=== PATIENT | male | born 1965 | race Caucasian/White ===

== ENCOUNTER 2022-05-27 08:51 | Inpatient (IN) | payer OTHER ==
[~2022-05-27] VITALS: Ht 182.9 cm; Wt 80.0 kg
[~2022-05-27 08:51] MED LIST: ETHYL ALCOHOL 62% ANTISEPTIC NASAL SANITIZER 0.6 ML AMPUL NASAL ONE; RINGERS SOLUTION,LACTATED 1,000 ML IV ONE
[2022-05-27] MEDS ORDERED: VANCOMYCIN HCL 1 GM/VIAL ONE ×3 (09:55→13:47)
[2022-05-27] MEDS ORDERED: BUPIVACAINE HCL/PF 0.5% 30 ML VIAL ONE (09:56)
[2022-05-27] MEDS ORDERED: SODIUM CL IRRIG SOLN BAG 3,000 ML IRRIG ONE (09:56)
[2022-05-27] MEDS ORDERED: LACT10SO9 PO (09:58)
[2022-05-27] MEDS ORDERED: LEVO125 PO (09:58)
[2022-05-27] MEDS ORDERED: CAPS60CR3 TP (09:58)
[2022-05-27] MEDS ORDERED: DULO-114 PO (09:58)
[2022-05-27] MEDS ORDERED: XALA2.5OS OU (09:58)
[2022-05-27] MEDS ORDERED: HYDR25TA PO (09:58)
[2022-05-27] MEDS ORDERED: CYCL-448 PO (09:58)
[2022-05-27] MEDS ORDERED: ACET-2247 PO (09:58)
[2022-05-27] MEDS ORDERED: MORP20CA16 PO (09:58)
[2022-05-27] MEDS ORDERED: LINA145C PO (09:58)
[2022-05-27] MEDS ORDERED: PREG75 PO (09:58)
[2022-05-27] MEDS ORDERED: COLL1PAC16 TP (09:58)
[2022-05-27] MEDS ORDERED: MAGN-169 PO (09:58)
[2022-05-27] MEDS ORDERED: LEVE500T20 PO (09:58)
[2022-05-27] MEDS ORDERED: LISI-894 PO (09:58)
[2022-05-27] MEDS ORDERED: HYDR30CR39 TP (09:58)
[2022-05-27] MEDS ORDERED: CHOL25TA4 PO (09:58)
[2022-05-27] MEDS ORDERED: NAPR-1025 PO (09:58)
[2022-05-27] MEDS ORDERED: FERR325T27 PO (09:58)
[2022-05-27 10:03] LABS: COVID AG,FIA SOURCE NASAL SWAB
[2022-05-27 10:05] LABS: ANION GAP 9 mmol/L (8-16); CALCIUM, TOTAL 9.6 mg/dL (8.8-10.5); CARBON DIOXIDE 27 mmol/L (22-29); CHLORIDE 105 mmol/L (98-107); CREATININE 1.17 mg/dL (0.60-1.30); GLOMERULAR FILTR. RATE CALC > 60 mL/min (>60); GLUCOSE,RANDOM 107 mg/dL (70-110); POTASSIUM 4.6 mmol/L (3.5-5.1); SODIUM SERUM 141 mmol/L (136-145); UREA NITROGEN, BLOOD 23 mg/dL (7-18)
[2022-05-27 10:08] LABS: PROTHROMBIN TIME 10.9 SEC (9.4-11.6)
[2022-05-27] MEDS ORDERED: CeFAZolin 2 GM/DEXTROSE 50 ML IV ONE ×2 (10:37→12:00)
[2022-05-27] MEDS ORDERED: RINGERS SOLUTION,LACTATED 1,000 ML IV ONE ×2 (11:00→19:06)
[2022-05-27] MEDS ORDERED: SODIUM CHLORIDE 0.9% 1,000 ML ONE ×4 (11:33→19:12)
[2022-05-27] MEDS ORDERED: BUPIVACAINE LIPOSOME/PF 1.3%-13.3MG/ML SUSPENSION 20 ML VIAL INJ ONE (12:00)
[2022-05-27] MEDS ORDERED: KETAMINE HCL 50 MG/ML 10 ML VIAL IVP ONE (12:00)
[2022-05-27] MEDS ORDERED: ROCURONIUM BROMIDE 10 MG/ML 5 ML VIAL IVP ONE (12:00)
[2022-05-27] MEDS ORDERED: 0.9% SODIUM CHLORIDE 10 ML VIAL IVP ONE (12:00)
[2022-05-27] MEDS ORDERED: KETOROLAC TROMETHAMINE 60 MG/2 ML VIAL IM ONE (12:00)
[2022-05-27] MEDS ORDERED: DEXAMETHASONE SOD PHOS 4 MG/ML VIAL IVP ONE (12:00)
[2022-05-27] MEDS ORDERED: HYDROmorphone HCL 2 MG/ML SYRINGE IVP ONE (12:00)
[2022-05-27] MEDS ORDERED: ONDANSETRON HCL 4 MG/2 ML VIAL IVP ONE (12:00)
[2022-05-27] MEDS ORDERED: MIDAZOLAM HCL 2 MG/2 ML VIAL IVP ONE (12:00)
[2022-05-27] MEDS ORDERED: LIDOCAINE/PF 2% 5 ML VIAL IM ONE (12:00)
[2022-05-27] MEDS ORDERED: FentaNYL CITRATE PF 100 MCG/2 ML VIAL IVP ONE (12:00)
[2022-05-27] MEDS ORDERED: SODIUM CHLORIDE 0.9% 50 ML ONE (12:05)
[2022-05-27] MEDS ORDERED: TRANEXAMIC ACID IV ONE (12:15)
[2022-05-27] MEDS ORDERED: WATER IV ONE (12:15)
[2022-05-27] MEDS ORDERED: DEXTROSE 5% IV ONE (12:15)
[2022-05-27] MEDS ORDERED: TRANEXAMIC ACID 1,000 MG in DEXTROSE 5%-WATER 50 ML IV ONE ×4 (12:30)
[2022-05-27] MEDS ORDERED: PHENYLEPHRINE 200 MG/D5%-WATER 250 ML IV SCH (13:09)
[2022-05-27 13:35] LABS: ABG BASE EXCESS -0.1 mmol/L (-2.0-3.0); ABG CARBOXYHEMOGLOBIN 0.8 % (0.0-1.5); ABG HCO3 25.2 mmol/L (22.0-26.0); ABG METHEMOGLOBIN 0.1 % (0.0-1.5); ABG OXYGEN CONTENT 17.5 mL/dL (15.0-23.0); ABG OXYHEMOGLOBIN 97.1 % (94.0-100.0); ABG PCO2 29 mmHg (35-45); ABG PH 7.517 (7.35-7.450); ABG TOTAL HEMOGLOBIN 12.7 G/dL (12.0-18.0); PO2, ARTERIAL BG 99.2 mmHg (84.0-92.0); SOURCE, BLOOD GAS ARTERIAL; TEMPERATURE, FAHRENHEIT, BG 97.5 FAHREN (96.0-98.6)
[2022-05-27 13:37] LABS: ABG A-A DIFF O2 16.3 mmHg (10-20.0); O2 DEVICE,BLOOD GAS ROOM AIR (ROOM AIR); SITE, BLOOD GAS RT RADIAL
[2022-05-27] MEDS ORDERED: THROMBIN, BOVINE 20000 UNITS/VIAL POWDER TP ONE (16:15)
[2022-05-27] MEDS ORDERED: MEPERIDINE-PF 25 MG/ML VIAL IVP PRN (16:30)
[2022-05-27] MEDS ORDERED: FentaNYL CITRATE PF 100 MCG/2 ML VIAL IVP PRN (16:30)
[2022-05-27] MEDS ORDERED: HYDROmorphone HCL 2 MG/ML SYRINGE IVP PRN (16:30)
[2022-05-27] MEDS ORDERED: HEPARIN SODIUM,PORCINE 5,000 UNITS/ML VIAL ONE ×4 (17:18→19:06)
[2022-05-27] MEDS ORDERED: OxyCODONE HCL 5 MG IR TABLET PO PRN (17:45)
[2022-05-27] MEDS ORDERED: OxyCODONE HCL/ACETAMINOPHEN 10-325 MG TABLET PO PRN (17:45)
[2022-05-27] MEDS ORDERED: CYCLOBENZAPRINE HCL 10 MG TABLET PO PRN (17:45)
[2022-05-27] MEDS ORDERED: ZOLPIDEM TARTRATE 5 MG TABLET PO PRN (17:45)
[2022-05-27] MEDS ORDERED: ONDANSETRON HCL 4 MG/2 ML VIAL IVP PRN ×3 (17:45→22:15)
[2022-05-27] MEDS ORDERED: HEPARIN SODIUM,PORCINE 5,000 UNITS/ML VIAL SQ ONE ×2 (18:45→21:30)
[2022-05-27] MEDS ORDERED: MINERAL OIL/PETROLATUM,WHITE PF 3.5 GM OPHTHALMIC OINTMENT ONE (18:51)
[2022-05-27] MEDS ORDERED: SODIUM CHLORIDE 0.9% 2,000 ML ONE (19:06)
[2022-05-27] MEDS ORDERED: PROPOFOL 1000 MG/ISO-OSM 100 ML ONE ×2 (19:27→19:28)
[2022-05-27] MEDS ORDERED: ACETAMINOPHEN 1000 MG/ISO-OSM 100 ML IV ONE (19:28)
[2022-05-27] MEDS ORDERED: DiphenhydrAMINE HCL 50 MG/ML VIAL IVP PRN (20:00)
[2022-05-27] MEDS ORDERED: NALOXONE HCL 0.4 MG/ML VIAL IVP PRN (20:00)
[2022-05-27] MEDS ORDERED: ACETAMINOPHEN 325 MG TABLET PO PRN ×2 (20:00→22:30)
[2022-05-27] MEDS ORDERED: BACITRACIN 28 GM OINTMENT TP PRN (20:00)
[2022-05-27] MEDS ORDERED: MAG HYDROX/AL HYDROX/SIMETH 30 ML SUSP UDCUP PO PRN (20:00)
[2022-05-27] MEDS ORDERED: FentaNYL CIT 1000MCG/0.9% NACL 100 ML IV PRN (20:30)
[2022-05-27] MEDS ORDERED: MUPIROCIN CALCIUM 2% 22 GM OINTMENT ONE (20:32)
[2022-05-27] MEDS: OXYGEN THERAPY IH SCH (21:00)
[2022-05-27] MEDS: DOCUSATE SODIUM 100 MG CAPSULE PO SCH (21:00)
[2022-05-27 21:13] VITALS: BP 91/54
[2022-05-27] MEDS: PROPOFOL 1000 MG/ISO-OSM 100 ML IV PRN (21:30)
[2022-05-27] MEDS ORDERED: MIDAZOLAM HCL 100 MG in SODIUM CHLORIDE 0.9% 180 ML IV PRN (21:30)
[2022-05-27] MEDS ORDERED: ACETAMINOPHEN 650 MG/20.3 ML SOLUTION UDCUP GT PRN (22:15)
[2022-05-27 22:24] LABS: BASOPHILS % (AUTO) 0.3 % (0.0-2.0); EOSINOPHILS % (AUTO) 0 % (1.0-6.0); LYMPHOCYTES # (AUTO) 0.7 K/uL (1.0-4.8); MEAN CORPUSCULAR HEMOGLOBIN 26.5 pg (26.0-34.0); MEAN CORPUSCULAR HGB CONC 31.3 G/dL (31.0-37.0); MEAN CORPUSCULAR VOLUME 85 fL (80-100); MONOCYTES # (AUTO) 0.3 K/uL (0.1-1.0); MONOCYTES % (AUTO) 3.4 % (2.0-9.0); NEUTROPHILS # (AUTO) 9.1 K/uL (1.8-7.7); PLATELET COUNT (AUTO) 286 K/uL (150-450); RED BLOOD CELL COUNT(AUTO) 3.78 MIL/uL (4.50-5.90); RED CELL DISTRIBUTION WIDTH 22.5 % (11.5-14.5)
[2022-05-27] MEDS ORDERED: ZOLPIDEM TARTRATE 10 MG TABLET PO PRN (22:24)
[2022-05-27 22:28] LABS: NEUTROPHILS % (AUTO) 89.3 % (40.0-70.0)
[2022-05-27] MEDS ORDERED: LACTULOSE 20 GM/30 ML SOLUTION UDCUP PO PRN (22:30)
[2022-05-27] MEDS ORDERED: COLLOIDAL OATMEAL PACKET TP PRN (22:30)
[2022-05-27] MEDS: LevETIRAcetam 500 MG TABLET PO SCH (22:30)
[2022-05-27] MEDS ORDERED: CAPSAICIN 0.025% 60 GM CREAM TP PRN (22:30)
[2022-05-27] MEDS ORDERED: HYDROCORTISONE 1% 30 GM CREAM TP PRN (22:30)
[2022-05-27 22:37] LABS: ALBUMIN 2.8 g/dL (3.4-5.0); BILIRUBIN,TOTAL 0.2 mg/dL (0.1-1.0); CALCIUM, TOTAL 7.8 mg/dL (8.8-10.5); CREATININE 1.24 mg/dL (0.60-1.30); INR 1.1 (0.9-1.1); POTASSIUM 4.5 mmol/L (3.5-5.1); PROTHROMBIN TIME 11.3 SEC (9.4-11.6); TOTAL PROTEIN, SERUM 6.3 g/dL (6.4-8.2)
[2022-05-27 23:12] LABS: ABG BASE EXCESS -9.1 mmol/L (-2.0-3.0); ABG CARBOXYHEMOGLOBIN 0.2 % (0.0-1.5); ABG HCO3 17.6 mmol/L (22.0-26.0); ABG METHEMOGLOBIN 0.4 % (0.0-1.5); ABG OXYGEN CONTENT 15.7 mL/dL (15.0-23.0); ABG OXYGEN SATURATION 96.9 % (95.0-98.0); ABG OXYHEMOGLOBIN 96.3 % (94.0-100.0); ABG PCO2 36 mmHg (35-45); ABG PH 7.301 (7.35-7.450); ABG TOTAL HEMOGLOBIN 11.5 G/dL (12.0-18.0); PO2, ARTERIAL BG 91.8 mmHg (84.0-92.0); SITE, BLOOD GAS ARTERIAL LINE; SOURCE, BLOOD GAS ARTERIAL
[2022-05-27 23:13] LABS: ABG A-A DIFF O2 118.1 mmHg (10-20.0); O2 DEVICE,BLOOD GAS VENT (ROOM AIR); PEEP,BG 5 cm H2O; VT, ABG 500 ml
[2022-05-28] VITALS: BP 116/80
[2022-05-28] MEDS ORDERED: ACETAMINOPHEN 1000 MG/ISO-OSM 100 ML IV SCH (01:00)
[2022-05-28] MEDS: CeFAZolin 1 GM/DEXTROSE 50 ML IV SCH ×2 (01:15→09:31)
[2022-05-28] MEDS ORDERED: SODIUM CHLORIDE 0.9% 250 ML IV ONE (01:22)
[2022-05-28] MEDS: POTASSIUM CHL 20 MEQ/0.45% NS 1,000 ML IV SCH ×2 (02:25→15:20)
[2022-05-28] MEDS: ACETAMINOPHEN 1000 MG/ISO-OSM 100 ML IV SCH ×4 (02:25→20:54)
[2022-05-28] MEDS: PROPOFOL 1000 MG/ISO-OSM 100 ML IV PRN ×2 (03:17→07:51)
[2022-05-28 04:00] VITALS: BP 98/62
[2022-05-28] MEDS: LEVOTHYROXINE SODIUM 125 MCG TABLET PO SCH (04:58)
[2022-05-28 06:13] LABS: BASOPHILS % (AUTO) 0.3 % (0.0-2.0); EOSINOPHILS % (AUTO) 0 % (1.0-6.0); HEMATOCRIT 29.5 % (41-53); HEMOGLOBIN 9.5 g/dL (13.5-17.5); LYMPHOCYTES # (AUTO) 1.4 K/uL (1.0-4.8); MEAN CORPUSCULAR HEMOGLOBIN 27.2 pg (26.0-34.0); MEAN CORPUSCULAR HGB CONC 32.1 G/dL (31.0-37.0); MEAN CORPUSCULAR VOLUME 85 fL (80-100); MONOCYTES # (AUTO) 0.7 K/uL (0.1-1.0); MONOCYTES % (AUTO) 5.3 % (2.0-9.0); NEUTROPHILS # (AUTO) 11.9 K/uL (1.8-7.7); NEUTROPHILS % (AUTO) 84.4 % (40.0-70.0); PLATELET COUNT (AUTO) 384 K/uL (150-450); RED BLOOD CELL COUNT(AUTO) 3.49 MIL/uL (4.50-5.90); RED CELL DISTRIBUTION WIDTH 22.2 % (11.5-14.5)
[2022-05-28 06:19] LABS: PROTHROMBIN TIME 11.1 SEC (9.4-11.6)
[2022-05-28 06:24] LABS: ALBUMIN 2.8 g/dL (3.4-5.0); BILIRUBIN,TOTAL 0.4 mg/dL (0.1-1.0); CALCIUM, TOTAL 8.2 mg/dL (8.8-10.5); CREATININE 1.32 mg/dL (0.60-1.30); POTASSIUM 4.5 mmol/L (3.5-5.1); TOTAL PROTEIN, SERUM 6.2 g/dL (6.4-8.2)
[2022-05-28] MEDS: LINACLOTIDE 145 MCG CAPSULE PO SCH (06:30)
[2022-05-28 06:39] LABS: MAGNESIUM 1.7 mg/dL (1.80-2.40)
[2022-05-28 08:00] VITALS: BP 121/75
[2022-05-28] MEDS: FERROUS SULFATE 325 MG EC TABLET PO SCH ×2 (08:00→17:22)
[2022-05-28] MEDS ORDERED: RINGERS SOLUTION,LACTATED 1,000 ML IV ONE (08:15)
[2022-05-28] MEDS: HYDROmorphone HCL 2 MG/ML SYRINGE IVP PRN ×4 (08:22→23:44)
[2022-05-28] MEDS ORDERED: ALBUTEROL SULFATE 2.5 MG/0.5 ML NEB SOLUTION NEB PRN (08:30)
[2022-05-28] MEDS ORDERED: IPRATROPIUM BROMIDE 0.5 MG/2.5 ML NEB SOLUTION NEB PRN (08:30)
[2022-05-28] MEDS: OXYGEN THERAPY IH SCH ×2 (08:39→20:53)
[2022-05-28] MEDS: HYDROCHLOROTHIAZIDE 25 MG TABLET PO SCH (09:00)
[2022-05-28] MEDS ORDERED: MAGNESIUM HYDROXIDE SUSPENSION 30 ML UDCUP PO PRN (09:00)
[2022-05-28] MEDS: DOCUSATE SODIUM 100 MG CAPSULE PO SCH ×2 (09:00→20:56)
[2022-05-28] MEDS: PREGABALIN 75 MG CAPSULE PO SCH ×2 (09:00→20:56)
[2022-05-28] MEDS: CHOLECALCIFEROL (VIT D3) 1,000 UNITS [25 MCG] TABLET PO SCH (09:00)
[2022-05-28] MEDS: LISINOPRIL 20 MG TABLET PO SCH (09:00)
[2022-05-28] MEDS: DULoxetine HCL 30 MG CAPSULE PO SCH (09:00)
[2022-05-28] MEDS: CHLORHEXIDINE GLUCONATE 0.12% 15 ML UDCUP ORAL RINSE MM SCH ×2 (09:00→20:54)
[2022-05-28] MEDS: CYCLOBENZAPRINE HCL 10 MG TABLET PO SCH ×2 (09:00→20:57)
[2022-05-28] MEDS: LevETIRAcetam 500 MG TABLET PO SCH ×2 (09:00→20:56)
[2022-05-28 12:00] VITALS: BP 126/54
[2022-05-28 16:00] VITALS: BP 108/42
[2022-05-28] MEDS ORDERED: FUROSEMIDE 40 MG/4 ML VIAL IVP ONE (17:15)
[2022-05-28] MEDS: RINGERS SOLUTION,LACTATED 1,000 ML IV SCH (17:22)
[2022-05-28] MEDS ORDERED: ALBUMIN HUMAN 25%-25GM/100ML 100 ML IV ONE (18:00)
[2022-05-28] MEDS: LATANOPROST 0.005% 2.5 ML OPHTHALMIC SOLUTION OU SCH (20:55)
[2022-05-28] MEDS: MORPHINE SULFATE 15 MG ER TABLET PO SCH (20:57)
[2022-05-29] VITALS (10 sets, daily range): BP systolic 96–112; BP diastolic 50–68
[2022-05-29] MEDS: HYDROmorphone HCL 2 MG/ML SYRINGE IVP PRN ×6 (02:30→18:24)
[2022-05-29] MEDS: RINGERS SOLUTION,LACTATED 1,000 ML IV SCH ×3 (02:30→23:54)
[2022-05-29 05:23] LABS: MONOCYTES # (AUTO) 0.5 K/uL (0.1-1.0)
[2022-05-29 06:02] LABS: ANION GAP 6 mmol/L (8-16); CALCIUM, TOTAL 8.2 mg/dL (8.8-10.5); CARBON DIOXIDE 26 mmol/L (22-29); CHLORIDE 107 mmol/L (98-107); CREATININE 1.03 mg/dL (0.60-1.30); GLOMERULAR FILTR. RATE CALC > 60 mL/min (>60); GLUCOSE,RANDOM 110 mg/dL (70-110); POTASSIUM 3.4 mmol/L (3.5-5.1); SODIUM SERUM 139 mmol/L (136-145); UREA NITROGEN, BLOOD 18 mg/dL (7-18)
[2022-05-29 06:19] LABS: BASOPHILS % (AUTO) 0.8 % (0.0-2.0); EOSINOPHILS % (AUTO) 4.5 % (1.0-6.0); HEMATOCRIT 24.1 % (41-53); HEMOGLOBIN 7.8 g/dL (13.5-17.5); LYMPHOCYTES # (AUTO) 1.3 K/uL (1.0-4.8); LYMPHOCYTES % (AUTO) 19.1 % (22.0-44.0); MEAN CORPUSCULAR HGB CONC 32.2 G/dL (31.0-37.0); MEAN CORPUSCULAR VOLUME 84 fL (80-100); MONOCYTES % (AUTO) 6.8 % (2.0-9.0); NEUTROPHILS # (AUTO) 4.7 K/uL (1.8-7.7); NEUTROPHILS % (AUTO) 68.8 % (40.0-70.0); RED BLOOD CELL COUNT(AUTO) 2.87 MIL/uL (4.50-5.90); RED CELL DISTRIBUTION WIDTH 22.4 % (11.5-14.5)
[2022-05-29] MEDS: LEVOTHYROXINE SODIUM 125 MCG TABLET PO SCH (06:23)
[2022-05-29 07:38] LABS: PLATELET COUNT (AUTO) 165 K/uL (150-450)
[2022-05-29] MEDS: OXYGEN THERAPY IH SCH (08:11)
[2022-05-29] MEDS: CYCLOBENZAPRINE HCL 10 MG TABLET PO SCH ×2 (08:45→20:44)
[2022-05-29] MEDS: CHLORHEXIDINE GLUCONATE 0.12% 15 ML UDCUP ORAL RINSE MM SCH ×2 (08:46→20:43)
[2022-05-29] MEDS: LevETIRAcetam 500 MG TABLET PO SCH ×2 (08:46→20:44)
[2022-05-29] MEDS: DULoxetine HCL 30 MG CAPSULE PO SCH ×2 (08:46→08:49)
[2022-05-29] MEDS: LISINOPRIL 20 MG TABLET PO SCH (08:47)
[2022-05-29] MEDS: HYDROCHLOROTHIAZIDE 25 MG TABLET PO SCH ×2 (08:47→08:50)
[2022-05-29] MEDS: FERROUS SULFATE 325 MG EC TABLET PO SCH ×2 (08:47→20:43)
[2022-05-29] MEDS: DOCUSATE SODIUM 100 MG CAPSULE PO SCH ×2 (08:47→20:43)
[2022-05-29] MEDS: PREGABALIN 75 MG CAPSULE PO SCH ×2 (08:56→20:44)
[2022-05-29] MEDS: CHOLECALCIFEROL (VIT D3) 1,000 UNITS [25 MCG] TABLET PO SCH (09:39)
[2022-05-29] MEDS ORDERED: MORP15 PO (18:24)
[2022-05-29] MEDS ORDERED: ACETAMINOPHEN 325 MG TABLET PO PRN (20:45)
[2022-05-29] MEDS: MORPHINE SULFATE 15 MG ER TABLET PO SCH (20:45)
[2022-05-29] MEDS: POTASSIUM CHLORIDE 20 MEQ ER TABLET PO PRN (20:47)
[2022-05-29] MEDS: LATANOPROST 0.005% 2.5 ML OPHTHALMIC SOLUTION OU SCH (23:38)
[2022-05-29] MEDS: OxyCODONE HCL/ACETAMINOPHEN 10-325 MG TABLET PO PRN (23:40)
[2022-05-30] MEDS: HYDROmorphone HCL 2 MG/ML SYRINGE IVP PRN ×6 (01:05→21:26)
[2022-05-30 04:15] VITALS: BP 91/66
[2022-05-30] MEDS: LINACLOTIDE 145 MCG CAPSULE PO SCH (06:24)
[2022-05-30] MEDS: LEVOTHYROXINE SODIUM 125 MCG TABLET PO SCH (06:24)
[2022-05-30 07:26] LABS: ANION GAP 7 mmol/L (8-16); CALCIUM, TOTAL 8.7 mg/dL (8.8-10.5); CARBON DIOXIDE 27 mmol/L (22-29); CHLORIDE 102 mmol/L (98-107); CREATININE 0.82 mg/dL (0.60-1.30); GLOMERULAR FILTR. RATE CALC > 60 mL/min (>60); GLUCOSE,RANDOM 95 mg/dL (70-110); POTASSIUM 4.1 mmol/L (3.5-5.1); SODIUM SERUM 136 mmol/L (136-145); UREA NITROGEN, BLOOD 14 mg/dL (7-18)
[2022-05-30] MEDS: OXYGEN THERAPY IH SCH (08:00)
[2022-05-30] MEDS: FERROUS SULFATE 325 MG EC TABLET PO SCH ×2 (08:00→18:20)
[2022-05-30 09:24] VITALS: BP 101/72
[2022-05-30] MEDS: HYDROCHLOROTHIAZIDE 25 MG TABLET PO SCH (10:36)
[2022-05-30] MEDS: PREGABALIN 75 MG CAPSULE PO SCH ×2 (10:36→19:59)
[2022-05-30] MEDS: DULoxetine HCL 30 MG CAPSULE PO SCH (10:36)
[2022-05-30] MEDS: LevETIRAcetam 500 MG TABLET PO SCH ×2 (10:36→19:58)
[2022-05-30] MEDS: DOCUSATE SODIUM 100 MG CAPSULE PO SCH ×2 (10:36→19:58)
[2022-05-30] MEDS: CHLORHEXIDINE GLUCONATE 0.12% 15 ML UDCUP ORAL RINSE MM SCH ×2 (10:36→19:58)
[2022-05-30] MEDS: CYCLOBENZAPRINE HCL 10 MG TABLET PO SCH ×2 (10:36→19:58)
[2022-05-30] MEDS: LISINOPRIL 20 MG TABLET PO SCH (10:37)
[2022-05-30] MEDS: RINGERS SOLUTION,LACTATED 1,000 ML IV SCH ×2 (10:39→21:26)
[2022-05-30] MEDS: CHOLECALCIFEROL (VIT D3) 1,000 UNITS [25 MCG] TABLET PO SCH (10:40)
[2022-05-30] MEDS: ETHYL ALCOHOL 62% ANTISEPTIC NASAL SANITIZER 0.6 ML AMPUL NASAL SCH (10:52)
[2022-05-30 15:21] LABS: APPEARANCE,URINE CLEAR (CLEAR); BILIRUBIN,URINE NEGATIVE (NEGATIVE); GLUCOSE, URINE (UA) NEGATIVE (NEGATIVE); KETONES,URINE NEGATIVE (NEGATIVE); LEUKOCYTE ESTERASE ,URINE NEGATIVE (NEGATIVE); NITRATE,URINE NEGATIVE (NEGATIVE); OCCULT BLOOD,URINE NEGATIVE (NEGATIVE); PH,URINE 5.5 (5.0-8.0); PROTEIN,URINE NEGATIVE (NEGATIVE); SPECIFIC GRAVITIY, URINE 1.006 (1.003-1.030); UROBILINOGEN,URINE <=1.0 mg/dL (<=1.0)
[2022-05-30] MEDS: LATANOPROST 0.005% 2.5 ML OPHTHALMIC SOLUTION OU SCH (19:58)
[2022-05-30] MEDS: MORPHINE SULFATE 15 MG ER TABLET PO SCH (19:58)
[2022-05-30 20:24] VITALS: BP 106/61
[2022-05-31] MEDS: HYDROmorphone HCL 2 MG/ML SYRINGE IVP PRN ×8 (00:21→21:09)
[2022-05-31] MEDS: BENZOCAINE/MENTHOL LOZENGE PO PRN ×3 (03:44→21:10)
[2022-05-31] MEDS: ETHYL ALCOHOL 62% ANTISEPTIC NASAL SANITIZER 0.6 ML AMPUL NASAL SCH (04:52)
[2022-05-31 05:27] VITALS: BP 105/70
[2022-05-31] MEDS: LINACLOTIDE 145 MCG CAPSULE PO SCH (06:03)
[2022-05-31] MEDS: LEVOTHYROXINE SODIUM 125 MCG TABLET PO SCH (06:03)
[2022-05-31 07:26] LABS: BASOPHILS % (AUTO) 0.2 % (0.0-2.0); EOSINOPHILS % (AUTO) 7.2 % (1.0-6.0); HEMATOCRIT 25.2 % (41-53); HEMOGLOBIN 8.3 g/dL (13.5-17.5); LYMPHOCYTES % (AUTO) 16.3 % (22.0-44.0); MEAN CORPUSCULAR HEMOGLOBIN 27.7 pg (26.0-34.0); MEAN CORPUSCULAR HGB CONC 32.9 G/dL (31.0-37.0); MEAN CORPUSCULAR VOLUME 84 fL (80-100); MONOCYTES # (AUTO) 0.7 K/uL (0.1-1.0); MONOCYTES % (AUTO) 10.3 % (2.0-9.0); NEUTROPHILS # (AUTO) 4.2 K/uL (1.8-7.7); PLATELET COUNT (AUTO) 143 K/uL (150-450); RED CELL DISTRIBUTION WIDTH 21.6 % (11.5-14.5)
[2022-05-31 07:50] LABS: ALANINE AMINOTRANSFERASE 11 U/L (12-78); ALBUMIN 2.6 g/dL (3.4-5.0); ALKALINE PHOSPHATASE 65 U/L (46-116); ANION GAP 5 mmol/L (8-16); ASPARTATE AMINOTRANSFERASE 21 U/L (15-37); BILIRUBIN,TOTAL 0.6 mg/dL (0.1-1.0); CALCIUM, TOTAL 8.4 mg/dL (8.8-10.5); CARBON DIOXIDE 31 mmol/L (22-29); CHLORIDE 99 mmol/L (98-107); CREATININE 0.79 mg/dL (0.60-1.30); GLOMERULAR FILTR. RATE CALC > 60 mL/min (>60); GLUCOSE,RANDOM 97 mg/dL (70-110); POTASSIUM 3.2 mmol/L (3.5-5.1); SODIUM SERUM 135 mmol/L (136-145); TOTAL PROTEIN, SERUM 6.3 g/dL (6.4-8.2); UREA NITROGEN, BLOOD 11 mg/dL (7-18)
[2022-05-31] MEDS: OXYGEN THERAPY IH SCH (08:00)
[2022-05-31 08:10] VITALS: BP 110/71
[2022-05-31] MEDS: FERROUS SULFATE 325 MG EC TABLET PO SCH ×2 (08:12→18:17)
[2022-05-31] MEDS: DOCUSATE SODIUM 100 MG CAPSULE PO SCH ×2 (08:12→20:08)
[2022-05-31] MEDS: LevETIRAcetam 500 MG TABLET PO SCH ×2 (08:12→20:08)
[2022-05-31] MEDS: PREGABALIN 75 MG CAPSULE PO SCH ×2 (08:12→20:08)
[2022-05-31] MEDS: DULoxetine HCL 30 MG CAPSULE PO SCH (08:12)
[2022-05-31] MEDS: CHLORHEXIDINE GLUCONATE 0.12% 15 ML UDCUP ORAL RINSE MM SCH ×2 (08:12→20:08)
[2022-05-31] MEDS: HYDROCHLOROTHIAZIDE 25 MG TABLET PO SCH (08:13)
[2022-05-31] MEDS: CHOLECALCIFEROL (VIT D3) 1,000 UNITS [25 MCG] TABLET PO SCH (08:13)
[2022-05-31] MEDS: CYCLOBENZAPRINE HCL 10 MG TABLET PO SCH ×2 (08:13→20:08)
[2022-05-31] MEDS: POTASSIUM CHLORIDE 20 MEQ ER TABLET PO PRN (09:00)
[2022-05-31] MEDS: LISINOPRIL 20 MG TABLET PO SCH (09:03)
[2022-05-31] MEDS: RINGERS SOLUTION,LACTATED 1,000 ML IV SCH (11:15)
[2022-05-31 17:00] VITALS: BP 110/71
[2022-05-31] MEDS: MORPHINE SULFATE 15 MG ER TABLET PO SCH (20:08)
[2022-05-31] MEDS: LATANOPROST 0.005% 2.5 ML OPHTHALMIC SOLUTION OU SCH (20:08)
[2022-05-31 20:11] VITALS: BP 104/66
[2022-06-01] MEDS: RINGERS SOLUTION,LACTATED 1,000 ML IV SCH (00:14)
[2022-06-01] MEDS: HYDROmorphone HCL 2 MG/ML SYRINGE IVP PRN ×5 (00:14→12:49)
[2022-06-01] MEDS: BENZOCAINE/MENTHOL LOZENGE PO PRN ×2 (03:08→13:32)
[2022-06-01 05:11] VITALS: BP 99/64
[2022-06-01] MEDS: ETHYL ALCOHOL 62% ANTISEPTIC NASAL SANITIZER 0.6 ML AMPUL NASAL SCH (05:29)
[2022-06-01] MEDS: LEVOTHYROXINE SODIUM 125 MCG TABLET PO SCH (05:29)
[2022-06-01] MEDS: LINACLOTIDE 145 MCG CAPSULE PO SCH ×2 (05:29→06:20)
[2022-06-01 08:00] VITALS: BP 103/67
[2022-06-01] MEDS: OXYGEN THERAPY IH SCH (08:00)
[2022-06-01] MEDS: CHLORHEXIDINE GLUCONATE 0.12% 15 ML UDCUP ORAL RINSE MM SCH ×2 (08:14→19:47)
[2022-06-01] MEDS: HYDROCHLOROTHIAZIDE 25 MG TABLET PO SCH (08:15)
[2022-06-01] MEDS: DULoxetine HCL 30 MG CAPSULE PO SCH (08:15)
[2022-06-01] MEDS: FERROUS SULFATE 325 MG EC TABLET PO SCH ×2 (08:15→18:19)
[2022-06-01] MEDS: DOCUSATE SODIUM 100 MG CAPSULE PO SCH ×2 (08:17→19:44)
[2022-06-01] MEDS: LevETIRAcetam 500 MG TABLET PO SCH ×2 (08:17→19:47)
[2022-06-01] MEDS: CYCLOBENZAPRINE HCL 10 MG TABLET PO SCH ×2 (08:17→19:46)
[2022-06-01] MEDS: CHOLECALCIFEROL (VIT D3) 1,000 UNITS [25 MCG] TABLET PO SCH (08:18)
[2022-06-01] MEDS: LISINOPRIL 20 MG TABLET PO SCH (09:00)
[2022-06-01] MEDS: PREGABALIN 75 MG CAPSULE PO SCH ×2 (10:43→19:47)
[2022-06-01 15:10] VITALS: BP 107/66
[2022-06-01] MEDS: OxyCODONE HCL/ACETAMINOPHEN 10-325 MG TABLET PO PRN (15:10)
[2022-06-01 19:44] VITALS: BP 117/81
[2022-06-01] MEDS: MORPHINE SULFATE 15 MG ER TABLET PO SCH (19:47)
[2022-06-01] MEDS: LATANOPROST 0.005% 2.5 ML OPHTHALMIC SOLUTION OU SCH (19:48)
== END 2022-06-01 20:39 | DRG 453 ==
LOC: 6N 08:51 → EEVIPCON 08:51 → ICU 21:00 → 6S 05-29 17:22
PROVIDERS: ADMIT Neurological Surgery; ATTEND Neurological Surgery
PROC: 0BH17EZ Insertion of Endotracheal Airway into Trachea, Via Natural or Artificial Opening (ICD-10-PCS; 2022-05-27)
PROC: 5A1935Z Respiratory Ventilation, Less than 24 Consecutive Hours (ICD-10-PCS; principal; 2022-05-27 13:30)
PROC: 0RG70A0 Fusion of 2 to 7 Thoracic Vertebral Joints with Interbody Fusion Device, Anterior Approach, Anterior Column, Open Approach (ICD-10-PCS; 2022-06-01)
PROC: 0RG8071 Fusion of 8 or more Thoracic Vertebral Joints with Autologous Tissue Substitute, Posterior Approach, Posterior Column, Open Approach (ICD-10-PCS; 2022-06-01)
PROC: 0RT90ZZ Resection of Thoracic Vertebral Disc, Open Approach (ICD-10-PCS; 2022-06-01)
PROC: 4A11X4G Monitoring of Peripheral Nervous Electrical Activity, Intraoperative, External Approach (ICD-10-PCS; 2022-06-01)
PROC: 3E0U0GB Introduction of Recombinant Bone Morphogenetic Protein into Joints, Open Approach (ICD-10-PCS; 2022-06-01)
PROC: 3E0U0GB Introduction of Recombinant Bone Morphogenetic Protein into Joints, Open Approach (ICD-10-PCS; 2022-06-01)
PROC: 4A11X4G Monitoring of Peripheral Nervous Electrical Activity, Intraoperative, External Approach (ICD-10-PCS; 2022-06-01)
DX: M46.44 Discitis, unspecified, thoracic region (principal); J96.90 Respiratory failure, unspecified, unspecified whether with hypoxia or hypercapnia; M46.24 Osteomyelitis of vertebra, thoracic region; E87.4 Mixed disorder of acid-base balance; J98.11 Atelectasis; N17.9 Acute kidney failure, unspecified; M40.204 Unspecified kyphosis, thoracic region; E87.6 Hypokalemia; Z20.822 Contact with and (suspected) exposure to COVID-19; D64.9 Anemia, unspecified; B18.2 Chronic viral hepatitis C; E03.9 Hypothyroidism, unspecified; I95.9 Hypotension, unspecified; G89.4 Chronic pain syndrome; F11.10 Opioid abuse, uncomplicated; F32.9 Major depressive disorder, single episode, unspecified; R45.1 Restlessness and agitation; G40.909 Epilepsy, unspecified, not intractable, without status epilepticus; I10 Essential (primary) hypertension; K59.09 Other constipation; Z88.8 Allergy status to other drugs, medicaments and biological substances; Z79.899 Other long term (current) drug therapy
CPT/HCPCS: 36600; 71045; 71250; 80048; 80053; 81003; 82805; 83735; 84132; 85025; 85610; 85730; 86850; 86900; 86901; 86923; 87081; 93005; 94002; 94003; 94375; 94640; 97110; 97116; 97162; 97167; 97530; 97535; C9290; G0378; J0131; J0690; J1100; J1170; J1644; J1885; J1940; J2250; J2370; J2405; J2704; J3010; J3370; J3480; J3490; J7030; J7050; J7060; J7120; P9046; Q9967; 36415-L1; 36415-TC; C1716; J7613; Z7610